=== PATIENT | female | born 1960 | race African-American/Black ===

== ENCOUNTER 2025-01-05 09:11 | Emergency (ER) | payer OTHER ==
[~2025-01-05] VITALS: Ht 157.5 cm; Wt 79.8 kg
[2025-01-05] MEDS: SODIUM CHLORIDE 0.9% 1000ML 1,000 ML IV STA (09:44)
[2025-01-05] MEDS: LORAZEPAM INJ 2 MG/ML VIAL IV ONE (09:44)
[2025-01-05 09:45] VITALS: BP 216/102; PULSE 106
[2025-01-05] MEDS: LABETALOL HCL 5 MG/ML 20ML VIAL IV STA (09:45)
[2025-01-05 11:13] LABS: BASOPHILS % 0.5 % (0.0-1.0); EOSINOPHILS # (AUTO) 0.2 (0.0-0.4); EOSINOPHILS % 3.2 % (0.0-6.0); HEMATOCRIT 42.9 % (34.2-44.1); HEMOGLOBIN 14.6 g/dL (12.0-16.0); LYMPHOCYTES # (AUTO) 3.8 (1.0-3.2); LYMPHOCYTES % 50.4 % (18.0-39.1); MEAN CORPUSCULAR HEMOGLOBIN 29.4 pg (28-32); MEAN CORPUSCULAR VOLUME 86.3 fL (81-99); MONOCYTES # (AUTO) 0.6 (0.2-0.8); MONOCYTES % 7.6 % (4.4-11.3); NEUTROPHILS # (AUTO) 2.9 (2.1-6.9); NEUTROPHILS % 37.9 % (38.7-80.0); PLATELET COUNT 371 x10e3/uL (140-360); RED BLOOD COUNT 4.97 x10e6/uL (3.6-5.1); RED CELL DISTRIBUTION WIDTH 13.2 % (11.7-14.4); WHITE BLOOD COUNT 7.54 x10e3/uL (4.8-10.8)
[2025-01-05 11:30] VITALS: PULSE 82; RESP 18; TEMP 97.8; O2SAT 99
[2025-01-05 11:39] LABS: INR 0.89; PROTHROMBIN TIME 12.6 seconds (11.9-14.5)
[2025-01-05 11:47] LABS: ALANINE AMINOTRANSFERASE 38 IU/L (0-55); ALBUMIN 4.5 g/dL (3.5-5.0); ALBUMIN/GLOBULIN RATIO 1.1 (0.8-2.0); ALKALINE PHOSPHATASE 82 IU/L (40-150); AMPHETAMINES SCREEN,URINE NEGATIVE (NEGATIVE); ANION GAP 16.6 mmol/L (8-16); BENZODIAZEPINES SCREEN,URINE NEGATIVE (NEGATIVE); BILIRUBIN,TOTAL 0.5 mg/dL (0.2-1.2); BLOOD UREA NITROGEN 10 mg/dL (7-26); BUN/CREATININE RATIO 10 (6-25); CALCIUM 10.2 mg/dL (8.4-10.2); CANNABINOIDS SCREEN,URINE NEGATIVE (NEGATIVE); CARBON DIOXIDE 19 mmol/L (22-29); CHLORIDE 105 mmol/L (98-107); COCAINE SCREEN,URINE NEGATIVE (NEGATIVE); EST GLOMERULAR FILTRATION RATE 63 ML/MIN (>=60); GLUCOSE 129 mg/dL (74-118); MAGNESIUM 1.8 MG/DL (1.3-2.1); METHADONE SCREEN, URINE NEGATIVE (NEGATIVE); OPIATES SCREEN,URINE NEGATIVE (NEGATIVE); PHENCYCLIDINE SCREEN,URINE NEGATIVE (NEGATIVE); POTASSIUM 3.6 mmol/L (3.5-5.1); SODIUM 137 mmol/L (136-145); TOTAL PROTEIN 8.6 g/dL (6.5-8.1)
[2025-01-05 11:57] LABS: TROPONIN I < 0.001 ng/mL (0-0.300)
== END 2025-01-05 11:56 | disposition home or self-care (01) ==
LOC: ER 09:18
DX: R51.9 Headache, unspecified (principal); R20.2 Paresthesia of skin; R55 Syncope and collapse; I10 Essential (primary) hypertension; F41.9 Anxiety disorder, unspecified; Z91.148 Patient's other noncompliance with medication regimen for other reason; R94.31 Abnormal electrocardiogram [ECG] [EKG]; Z86.73 Personal history of transient ischemic attack (TIA), and cerebral infarction without residual deficits
CPT/HCPCS: 36415; 70450; 71045; 80053; 80307; 83735; 84484; 85025; 85610; 85730; 93005; 99284; J2060; J3490; J7030